=== PATIENT | male | born 1980 | race Caucasian/White ===

== ENCOUNTER 2017-01-30 08:36 | Emergency (ER) | payer OTHER ==
[2017-01-30 08:53] VITALS: BP 133/85
--- NOTE | 2017-01-30 09:17 | UC ---
Back Pain HPI - HPI Summary HPI Summary: LOW BACK PAIN SINCE YESTERDAY. 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 PAIN MUCH WORSE TODAY. PAIN RADIATES DOWN RT BUTTOCK TO THIGH. NO RECALL OF BACK INJURIES . HAD "SPASMS" YEARS AGO. [ End ] - History of Current Complaint Chief Complaint: UCBackPain Stated Complaint: LOWER BACK INJURY WC Time Seen by Provider: 01/30/17 09:09 Hx Obtained From: Patient Onset/Duration: Sudden Onset Timing: Constant Severity Initially: Moderate Severity Currently: Moderate Back Pain: Is Diffuse Character: Throbbing, Spasmodic, Stiffness Aggravating: Movement Alleviating: Rest Associated Signs And Symptoms: Positive: Negative - Risk Factors AAA Risk Factors: Negative TAD Risk Factors: Negative Cauda Equina Risk Factors: Negative Epidural Abscess Risk Factors: Negative - Allergies/Home Medications Allergies/Adverse Reactions: Allergies Allergy/AdvReac Type Severity Reaction Status Date / Time No Known Allergies Allergy Verified 01/30/17 08:47 PMH/Surg Hx/FS Hx/Imm Hx Previously Healthy: Yes Cardiovascular History Of: Denies: Cardiac Disorders GI/ History Of: Reports: Ulcer - Surgical History Surgical History: None - Family History Known Family History: Positive: None - Social History Occupation: Employed Full-time Lives: With Family Alcohol Use: None Substance Use Type: None Smoking Status (MU): Former Smoker When Did the Patient Quit Smoking/Using Tobacco: 8 years ago Review of Systems Constitutional: Negative Skin: Negative Eyes: Negative ENT: Negative Respiratory: Negative Cardiovascular: Negative Gastrointestinal: Negative Genitourinary: Negative Motor: Negative Neurovascular: Negative Musculoskeletal: Arthralgia, Decreased ROM Neurological: Negative Psychological: Negative All Other Systems Reviewed And Are Negative: Yes Physical Exam Triage Information Reviewed: Yes Appearance: Well-Appearing, Well-Nourished, Pain Distress - moderate Vital Signs: Initial Vital Signs Temp 98.2 F 01/30/17 08:47 Pulse 80 01/30/17 08:47 Resp 18 01/30/17 08:47 BP 133/85 01/30/17 08:47 Pulse Ox 98 01/30/17 08:47 Vital Signs Reviewed: Yes Eye Exam: Normal ENT Exam: Normal Dental Exam: Normal Neck exam: Normal Neck: Positive: 1 Respiratory Exam: Normal Cardiovascular Exam: Normal Abdominal Exam: Normal Musculoskeletal Exam: Normal Musculoskeletal: Positive: Strength Intact, No Edema, ROM Limited @, Other: - Lumbar paraspinal and SP tenderness to palpation L4-5. no step offs. antalgic gait. (+) SLR B/L normal heel to toe. no foot drop. knee exam WNL. Neurological Exam: Normal Psychological Exam: Normal Skin Exam: Normal Back Pain Course/Dx - Course Course Of Treatment: muscle spasms vs herniated discs. Start treatment and if develop red flags which he does not have (foot drop/ incontinence) then go to ED , he will f/u with PCP in 3 days - Differential Dx/Diagnosis Differential Diagnosis/HQI/PQRI: Cauda Equina Syndrome, Compressive Cord Syndrome, Herniated Disc, Strain, Sprain Provider Diagnoses: Lumbar pain / strain/ muscle spasm Discharge - Discharge Plan Condition: Good Disposition: HOME Prescriptions: Cyclobenzaprine TAB* [Flexeril 10 MG TAB*] 10 mg PO BID PRN #20 tab PRN Reason: spasm Ibuprofen 600 MG #6 TAB PREPAK 600 mg PO QID PRN #60 tab PRN Reason: Pain Methylprednisolone [Medrol Dosepak 4 MG*] 0 mg PO .SEE STARR INSTRUCTION #1 tab Patient Education Materials: Back Pain (ED) Referrals: Meng Yoon MD [Primary Care Provider] - 3 Days Polo Jackson MD [Medical Doctor] -
[2017-01-30] MEDS ORDERED: Ibuprofen TAB* 600 MG PO ONE (09:21)
--- NOTE | 2017-01-30 09:58 | RAD ---
INDICATION: Low back pain. COMPARISON: Comparison is made with a prior study from May 18, 2008. TECHNIQUE: 5 views of the lumbar spine were obtained including lateral, oblique, AP and a coned-down lateral view of the lumbar sacral junction. FINDINGS: The vertebra are in normal alignment. No fracture is seen. Disc spaces appear maintained. IMPRESSION: NEGATIVE EXAM.
== END 2017-01-30 10:11 | disposition home or self-care (01) ==
LOC: UCCORT 08:36
DX: S39.012A Strain of muscle, fascia and tendon of lower back, initial encounter (principal); X50.9XXA Other and unspecified overexertion or strenuous movements or postures, initial encounter; Y93.89 Activity, other specified; Y92.9 Unspecified place or not applicable; Y99.0 Civilian activity done for income or pay; M62.830 Muscle spasm of back; Z87.891 Personal history of nicotine dependence
CPT/HCPCS: 72110; 99212; A9270-GY; G0463

== ENCOUNTER 2017-03-29 17:38 | Emergency (ER) | payer BC, OTHER ==
[2017-03-29 17:47] VITALS: BP 130/73
[2017-03-29] MEDS ORDERED: Penicillin VK TAB* 250 MG PO ONE (17:56)
--- NOTE | 2017-03-29 17:57 | UC ---
Throat Pain/Nasal Dario HPI - HPI Summary HPI Summary: complaint of sore throat that started yesterday daughter has strep fever of 102 today took ibuprofen with relief took leftover pneicillin aching body and fatigued daughter with strep throat denies cough and nasal congestion - History of Current Complaint Stated Complaint: FEVER,THROAT Time Seen by Provider: 03/29/17 17:44 Hx Obtained From: Patient - Allergies/Home Medications Allergies/Adverse Reactions: Allergies Allergy/AdvReac Type Severity Reaction Status Date / Time No Known Allergies Allergy Verified 03/29/17 17:43 Home Medications: Home Medications Ibuprofen TAB* [Advil TAB*] 200 mg PO Q6H PRN 03/29/17 [History Confirmed ] PMH/Surg Hx/FS Hx/Imm Hx Previously Healthy: Yes - Surgical History Surgical History: None - Family History Known Family History: Positive: None - Social History Occupation: Employed Full-time Lives: With Family Alcohol Use: None Substance Use Type: None Smoking Status (MU): Former Smoker When Did the Patient Quit Smoking/Using Tobacco: 8 years ago Review of Systems Constitutional: Fever Skin: Negative Eyes: Negative ENT: Sore Throat Respiratory: Negative Cardiovascular: Negative Gastrointestinal: Negative Genitourinary: Negative Motor: Negative Neurovascular: Negative Musculoskeletal: Negative Neurological: Negative Psychological: Negative All Other Systems Reviewed And Are Negative: Yes Physical Exam Triage Information Reviewed: Yes Appearance: No Pain Distress, Well-Nourished Vital Signs: Initial Vital Signs Temp 99.6 F 03/29/17 17:43 Pulse 115 03/29/17 17:43 Resp 16 03/29/17 17:43 BP 130/73 03/29/17 17:43 Pulse Ox 95 03/29/17 17:43 Vital Signs Reviewed: Yes Eyes: Positive: Conjunctiva Clear ENT: Positive: Pharyngeal erythema, TMs normal, Tonsillar swelling, Tonsillar exudate Dental: Positive: Cervical Lymphadenopathy Respiratory: Positive: Lungs clear, Normal breath sounds, No respiratory distress, No accessory muscle use Cardiovascular: Positive: RRR, No Murmur, Pulses Normal Abdomen Description: Positive: Nontender, Soft Bowel Sounds: Positive: Present Psychological Exam: Normal Skin Exam: Normal Throat Pain/Nasal Course/Dx - Differential Dx/Diagnosis Differential Diagnosis/HQI/PQRI: Tonsillitis Provider Diagnoses: tonsilitis Discharge - Discharge Plan Condition: Stable Disposition: HOME Prescriptions: Penicillin VK TAB 500 MG(NF) [Penicillin VK 500 mg Tab(NF)] 500 mg PO TID #30 tab Patient Education Materials: Strep Throat (ED) Referrals: Meng Yoon MD [Primary Care Provider] - Additional Instructions: Please start antibiotic as directed Increase fluids and rest Take acetaminophen or ibuprofen for fever or pain Please review your discharge instructions. If your symptoms do not improve please call your primary care provider or return to urgent care.
== END 2017-03-29 18:12 | disposition home or self-care (01) ==
LOC: UCCORT 17:38
DX: J03.90 Acute tonsillitis, unspecified (principal); Z87.891 Personal history of nicotine dependence
CPT/HCPCS: 99212; A9270-GY; G0463

== ENCOUNTER 2018-01-15 16:05 | Emergency (ER) | payer SELFPAY ==
[2018-01-15 16:28] VITALS: BP 125/85
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
== END 2018-01-15 17:21 | disposition home or self-care (01) ==
LOC: UCCORT 16:05
DX: S03.41XA Sprain of jaw, right side, initial encounter (principal); W50.0XXA Accidental hit or strike by another person, initial encounter; Y92.9 Unspecified place or not applicable; Z87.891 Personal history of nicotine dependence
CPT/HCPCS: 99211; G0463